=== PATIENT | male | born 1995 | race Caucasian/White ===

== ENCOUNTER 2019-05-18 20:53 | Inpatient (IN) | payer BC ==
[~2019-05-18] VITALS: Ht 175.3 cm; Wt 90.2 kg
[~2019-05-18 20:53] MED LIST: DOCU-144 PO
[2019-05-18 21:20] VITALS: BP 142/93; PULSE 94; RESP 17
[2019-05-18] MEDS ORDERED: ONDANSETRON 4 MG INJ IV PRN (22:00)
[2019-05-18] MEDS ORDERED: ACETAMINOPHEN 325 MG TAB PO PRN (22:00)
[2019-05-18] MEDS ORDERED: morphine 4 MG/ML VIAL IV PRN (22:00)
[2019-05-18 22:30] VITALS: Ht 175.3 cm; Wt 90.2 kg
[2019-05-18] MEDS ORDERED: DEXTROSE 50% 50 ML SYRINGE IV PRN ×2 (22:30)
[2019-05-18] MEDS ORDERED: GLUCOSE GEL 15 GRAM TUBE PO PRN ×2 (22:30)
[2019-05-18] MEDS ORDERED: GLUCAGON 1 MG INJ IM PRN (22:30)
[2019-05-18] MEDS ORDERED: GLUCOSE GEL 15 GRAM TUBE BUCCAL PRN (22:30)
[2019-05-18] MEDS: INSULIN ASPART [NOVOLOG] 3 ML PEN SC SCH (22:43)
[2019-05-18] MEDS: INSULIN GLARGINE [LANTus] (100 UNITS/ML) SYG SC SCH (22:44)
[2019-05-18] MEDS ORDERED: morphine 2 MG INJ IV ONE (23:00)
[2019-05-19] MEDS: morphine 4 MG/ML VIAL IV PRN ×4 (00:55→11:11)
[2019-05-19 02:00] VITALS: BP 140/91; PULSE 95; RESP 18
[2019-05-19] MEDS: ACCU-CHEK XX SCH (02:00)
[2019-05-19 07:23] VITALS: BP 162/93; PULSE 138; RESP 18
[2019-05-19 07:30] VITALS: BP 153/88
[2019-05-19] MEDS: INSULIN ASPART [NOVOLOG] 3 ML PEN SC SCH ×4 (08:53→20:41)
[2019-05-19] MEDS ORDERED: DOCUSATE SODIUM 100 MG CAP PO PRN (11:30)
[2019-05-19] MEDS: POLYETHYLENE GLYCOL 17 GM PACKET PO SCH (11:30)
[2019-05-19] MEDS ORDERED: OXYCODONE/ACETAMINOPHEN (10/325) TAB PO PRN (11:30)
[2019-05-19 11:35] VITALS: PULSE 112
[2019-05-19] MEDS: OXYCODONE/ACETAMINOPHEN (10/325) TAB PO PRN ×3 (13:01→21:56)
[2019-05-19 14:10] VITALS: BP 129/73; PULSE 96; RESP 17
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
[2019-05-19 19:36] VITALS: BP 138/67; PULSE 93; RESP 18
[2019-05-19] MEDS: INSULIN GLARGINE [LANTus] (100 UNITS/ML) SYG SC SCH (20:41)
[2019-05-20] MEDS: OXYCODONE/ACETAMINOPHEN (10/325) TAB PO PRN ×5 (01:42→19:20)
[2019-05-20 02:00] VITALS: BP 139/72; RESP 16
[2019-05-20] MEDS: ACCU-CHEK XX SCH (02:00)
[2019-05-20] MEDS: INSULIN ASPART [NOVOLOG] 3 ML PEN SC SCH ×3 (07:50→17:53)
[2019-05-20 08:10] VITALS: BP 132/90; PULSE 74; RESP 18
[2019-05-20] MEDS: POLYETHYLENE GLYCOL 17 GM PACKET PO SCH (09:08)
--- NOTE | 2019-05-20 11:41 | PDOCDIS ---
Discharge Instructions CONDITION [id number] Patient Condition: Omnso1u Good HOME CARE INSTRUCTIONS: [id number] Special Diet: Oxnoe7u diabetic ACTIVITY: [id number] Activity Restrictions: [id number] No Weight Bearing FOLLOW UP/APPOINTMENTS Follow-up Plan pcp [address] Jimenez call for appointment KARLY DIALLO MD May 20, 2019 11:41
[2019-05-20] MEDS ORDERED: HYDROCODONE/APAP (5/325) TAB PO PRN (13:30)
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
[2019-05-20 14:53] VITALS: BP 128/80; PULSE 80; RESP 18
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
== END 2019-05-20 19:45 | disposition home health service (06) | DRG 563 ==
LOC: MS1 20:53
PROVIDERS: ADMIT Legal Medicine; ATTEND Legal Medicine
DX: S92.102A Unspecified fracture of left talus, initial encounter for closed fracture (principal); S92.511A Displaced fracture of proximal phalanx of right lesser toe(s), initial encounter for closed fracture; V29.9XXA Motorcycle rider (driver) (passenger) injured in unspecified traffic accident, initial encounter; T14.8XXA Other injury of unspecified body region, initial encounter; E11.9 Type 2 diabetes mellitus without complications
CPT/HCPCS: 73700; 80048; 82962; 85025; 97161; J1815; J2270; J2405; L4360-LT